=== PATIENT | male | born 1985 | race Two or more races ===

== ENCOUNTER 2023-03-07 08:35 | Emergency (ER) | payer SELFPAY ==
[~2023-03-07] VITALS: Ht 167.6 cm; Wt 98.4 kg
[2023-03-07 09:25] VITALS: BP 126/83; PULSE 78; RESP 16; TEMP 97.7; O2SAT 98
[2023-03-07] MEDS ORDERED: IBUP-1455 PO (10:26)
== END 2023-03-07 10:31 | disposition home or self-care (01) ==
LOC: ER 08:35
DX: S86.912A Strain of unspecified muscle(s) and tendon(s) at lower leg level, left leg, initial encounter (principal); X50.1XXA Overexertion from prolonged static or awkward postures, initial encounter; Y93.89 Activity, other specified; Y92.89 Other specified places as the place of occurrence of the external cause; Y99.8 Other external cause status
CPT/HCPCS: 73562